=== PATIENT | male | born 1955 | race African-American/Black ===

== ENCOUNTER 2022-05-06 09:19 | Day surgery (SDC) | payer MEDICARE, MEDICAID ==
[~2022-05-06 09:19] MED LIST: Sodium Chloride 0.9% 10 ML Syringe FLUSH PRN
[2022-05-06] MEDS ORDERED: Propofol 200 MG/20 ML SDV IV ONE (09:20)
[2022-05-06] MEDS ORDERED: Midazolam 1 MG/ML 2 ML SDV IV ONE (09:20)
[2022-05-06] MEDS ORDERED: Lactated Ringers 1,000 ML IV ONE (09:20)
[2022-05-06] MEDS: Lactated Ringers 1,000 ML IV SCH (10:30)
[2022-05-06] MEDS: Simethicone Drops 40 MG/0.6 ML 30 ML Bottle PO ONE (11:24)
[2022-05-06 15:11] VITALS: BP 154/95; PULSE 68
== END 2022-05-06 13:15 ==
LOC: FB.SDS 09:19
PROVIDERS: ATTEND Surgery
DX: Z12.11 Encounter for screening for malignant neoplasm of colon (principal); K40.20 Bilateral inguinal hernia, without obstruction or gangrene, not specified as recurrent; J44.9 Chronic obstructive pulmonary disease, unspecified; K21.9 Gastro-esophageal reflux disease without esophagitis; E03.9 Hypothyroidism, unspecified; J18.9 Pneumonia, unspecified organism; I25.2 Old myocardial infarction; Z79.899 Other long term (current) drug therapy; Z91.048 Other nonmedicinal substance allergy status; Z98.890 Other specified postprocedural states; Z87.891 Personal history of nicotine dependence
CPT/HCPCS: 00812; A9270-GY; J2250; J2704; J7120